=== PATIENT | female | born 1980 | race African-American/Black ===

== ENCOUNTER 2017-12-02 20:19 | Emergency (ER) | payer OTHER ==
--- NOTE | 2017-12-02 20:24 | PDOC ---
History of Present Illness - General Stated Complaint: VAGINAL BLEED Time Seen by Provider: 12/02/17 20:24 History Source: Patient Exam Limitations: No Limitations - History of Present Illness Initial Comments: 12/02/17 20:52 37 year old female A1 BIBA from urgent care to ED for vaginal bleeding x13 days, worsening today at 1430. She admits to clots, using 10 pads since 1430 today. She states she had an elective 11/19/17, had a TVUS showing an empty uterus 11/23/17, was seen by her OBGYN recently for abdominal cramping, was prescribed Ketorlac. She states she was seen by urgent care today today, was told her urine test was positive and was sent to ED. She currently complains of lightheadedness and suprapubic pain. She denies fever, chills, nausea, vomiting, diarrhea, chest pain, shortness of breath. Pt also compains of sore throat, was seen by her physician, strep test was negative. Pt recently traveled to [facility] for four days. Allergies - NKDA Past History - Past Medical History Allergies/Adverse Reactions: Allergies Allergy/AdvReac Type Severity Reaction Status Date / Time No Known Allergies Allergy Verified 12/02/17 20:27 Home Medications: Ambulatory Orders Zolpidem Tartrate [Ambien] 5 mg PO HS PRN 12/02/17 Review of Systems - Review of Systems Able to Perform ROS?: Yes Comments:: 12/02/17 20:39 General: denies fever, chills, night sweats, generalized weakness. HEENT: admits to sore throat. denies rhinorrhea, ear pain. Heart: admits to lightheadedness. denies chest pain, palpitations, syncope, lower extremity swelling, diaphoresis. Respiratory: denies shortness of breath, cough, sputum production, hemoptysis. Abdomen: admits to suprapubic pain. denies nausea, vomiting, diarrhea, constipation, blood in stool. : admits to vaginal bleeding. denies dysuria, increased urinary frequency, hematuria, urinary incontinence, flank pain. Back: denies back pain. Musculoskeletal: denies joint pain, muscle pain, joint swelling. Neurological: denies headache, dizziness, numbness, tingling, weakness. Skin: denies rash, laceration, abrasion. *Physical Exam - Physical Exam Comments: 12/02/17 20:40 Constitutional: Well-nourished, Well-developed, appearing stated age. HEENT: head is normocephalic, atraumatic. EOMI. PERRLA. no posterior pharyngeal erythema. no tonsillar swelling. no tonsillar exudates. moist oral mucousa. Neck: supple. Full ROM. Heart: regular rhythm. no murmurs, rubs or gallops. Lungs: clear to auscultation bilaterally. no crackles, rhonchi or wheezing. no stridor. Abdomen: soft, flat. tenderness to palpation of suprapubic area. normal bowel sounds. no rebound, guarding, masses. Pelvic: normal external genitalia. minimal pooling of blood in vaginal canal. mucus seen at cervical os. no CMT on bimanual examination. no adnexal tenderness on bimanual examination. Extremities: Peripheral pulses intact and equal. No lower extremity edema. Neurological: CN 2-12 grossly intact. Moves all four extremities. Psych: awake, alert, oriented x3. Follows commands. Answers questions appropriately. ED Treatment Course - LABORATORY CBC & Chemistry Diagram: 12/02/17 21:05 12/02/17 21:05 Medical Decision Making - Medical Decision Making 12/02/17 20:41 37 year old female A1 with no PMH BIBA from urgent care to ED for vaginal bleeding x13 days, worsening at 1430 today. Pt stated outpatient TVUS performed on 11/23/17 showed an empty uterus, with blood in the canal. Pt stated she had a positive urine test today. Initial Vital Signs Temp Pulse Resp BP Pulse Ox 99.8 F H 79 20 118/84 98 12/02/17 20:27 12/02/17 20:27 12/02/17 20:27 12/02/17 20:27 12/02/17 20:27 Febrile. No tachycardia. No tachypnea. No hypotension. No hypoxia on room air. Concern for ectopic /retained products of conception - Pending TVUS - Doxycycline and Cefoxitin ordered for suspected retained products of conception Concern for anemia - CBC Concern for coagulopathy - Pending coags Concerns for SIRS/Sepsis - Pending blood cultures, lactate 12/02/17 22:00 CBC WBC 6.5 K/mm3 (4.0-10.0) 12/02/17 21:05 RBC 4.07 M/mm3 (3.60-5.2) 12/02/17 21:05 Hgb 9.7 GM/dL (10.7-15.3) L 12/02/17 21:05 Hct 30.7 % (32.4-45.2) L 12/02/17 21:05 MCV 75.4 fl (80-96) L 12/02/17 21:05 MCH 23.7 pg (25.7-33.7) L 12/02/17 21:05 MCHC 31.4 g/dl (32.0-36.0) L 12/02/17 21:05 RDW 15.4 % (11.6-15.6) 12/02/17 21:05 Plt Count 359 K/MM3 (134-434) 12/02/17 21:05 MPV 8.8 fl (7.5-11.1) 12/02/17 21:05 Absolute Neuts (auto) 4.3 K/mm3 (1.5-8.0) 12/02/17 21:05 Neutrophils % 66.2 % (42.8-82.8) 12/02/17 21:05 Lymphocytes % 24.5 % (8-40) 12/02/17 21:05 Monocytes % 8.3 % (3.8-10.2) 12/02/17 21:05 Eosinophils % 0.6 % (0-4.5) 12/02/17 21:05 Basophils % 0.4 % (0-2.0) 12/02/17 21:05 Nucleated RBC % 0 % (0-0) 12/02/17 21:05 No leukocytosis. - Pt does not meet qualification for SIRS Mild anemia - Likely secondary to vaginal bleeding, no prior to compare No thrombocytopenia Urine Test Results Urine Color Ltyellow 12/02/17 20:49 Urine Appearance Slcloudy 12/02/17 20:49 Urine pH 8.0 (5.0-8.0) 12/02/17 20:49 Ur Specific [place] 1.010 (1.010-1.035) 12/02/17 20:49 Urine Protein 1+ (NEGATIVE) H 12/02/17 20:49 Urine Glucose (UA) Negative (NEGATIVE) 12/02/17 20:49 Urine Ketones Negative (NEGATIVE) 12/02/17 20:49 Urine Blood 3+ (NEGATIVE) H 12/02/17 20:49 Urine Nitrite Negative (NEGATIVE) 12/02/17 20:49 Urine Bilirubin Negative (<2.0 mg/dL) 12/02/17 20:49 Ur Leukocyte Esterase Negative (NEGATIVE) 12/02/17 20:49 Urine Mucus Rare 12/02/17 20:49 3+ blood - Likely contaminate from vaginal bleeding No evidence of urinary tract infection Urine test positive. - Pending serum quant 12/02/17 22:00 I signed this patient out to Dr. Arrington, who will assume care for the patient while she is in the Emergency Department. *DC/Admit/Observation/Transfer Diagnosis at time of Disposition: Suprapubic pain, Vaginal bleeding - Referrals Referrals: Carlos Barnett [Primary Care Provider] - - Patient Instructions - Post Discharge Activity
[2017-12-02 20:29] VITALS: BP 118/84; PULSE 79; TEMP 99.8; BMI 28.8
[2017-12-02 21:14] LABS: URINE APPEARANCE SLCLOUDY; URINE BILIRUBIN NEGATIVE (<2.0 mg/dL); URINE COLOR LTYELLOW; URINE GLUCOSE (UA) NEGATIVE (NEGATIVE); URINE KETONE NEGATIVE (NEGATIVE); URINE LEUK ESTERASE NEGATIVE (NEGATIVE); URINE NITRITE NEGATIVE (NEGATIVE); URINE PROTEIN 1+ (NEGATIVE); URINE UROBILINOGEN NEGATIVE mg/dL (0.2-1.0)
[2017-12-02 21:17] LABS: BASO % 0.4 % (0-2.0); EOS % 0.6 % (0-4.5); HEMATOCRIT 30.7 % (32.4-45.2); HEMOGLOBIN 9.7 GM/dL (10.7-15.3); LYMPH % 24.5 % (8-40); MCH 23.7 pg (25.7-33.7); MCHC 31.4 g/dl (32.0-36.0); MEAN CELL VOLUME 75.4 fl (80-96); MEAN PLT VOLUME 8.8 fl (7.5-11.1); MONO % 8.3 % (3.8-10.2); NEUT % 66.2 % (42.8-82.8); PLATELET COUNT 359 K/MM3 (134-434); RBC 4.07 M/mm3 (3.60-5.2); RDW 15.4 % (11.6-15.6); WHITE BLOOD COUNT 6.5 K/mm3 (4.0-10.0)
[2017-12-02] MEDS ORDERED: CEFOXITIN SODIUM 2 GM in DEXTROSE 5%-WATER - 100 ML IVPB ONE (21:18)
[2017-12-02] MEDS ORDERED: DOXYCYCLINE INJECTION 100 MG in DEXTROSE 5%-WATER - 100 ML IVPB ONE (21:18)
[2017-12-02 21:20] LABS: HCG,QUALITATIVE URINE Positive
--- NOTE | 2017-12-02 21:27 | PDOC ---
Attending Attestation - HPI HPI: 12/02/17 21:59 The patient is a 37 year old female A1 brought via EMS, with a significant past medical history of, who presents to the ED complaining of vaginal bleeding for the past 13 days. She notes that bleeding worsened today and started to see clots. She notes that she has used over 10 pads today. She had an elective n 11/19/17. She also notes that she had a TVUS on 11/23/17 which showed an empty uterus. She was recently prescribed Ketorlac after seeing her OBGYN for abdominal cramping. She saw her OBGYN today who performed a test that was positive. She was sent to the ED for evaluation. She notes that she is also experiencing suprapubic pain and lightheadedness. The patient denies chest pain, shortness of breath, headache, fever, chills, nausea, vomiting, diarrhea or constipation. Allergies: None Past surgical history: None reported Social History: No alcohol, tobacco or drug use reported <Henry Dowd - Last Filed: 12/02/17 21:59> - Resident Resident Name: Bea Lemus - ED Attending Attestation I have performed the following: I have examined & evaluated the patient, The case was reviewed & discussed with the resident, I agree w/resident's findings & plan, Exceptions are as noted - Physicial Exam PE: 12/02/17 23:12 Patient is awake and alert, well-appearing, well-nourished, in no distress Normocephalic and atraumatic PERRLA, EOMI, CTA RRR Abdomen soft, nontender, nondistended, bowel sounds present in all 4 quadrants, no hernias, no CVA tenderness bilaterally see pelvic exam by Dr. Lemus. - Medical Decision Making 12/02/17 23:15 37-year-old female status post elective medical presents with recurrent vaginal bleeding. Patient's hemodynamically stable with no evidence of CMT or endometrial tenderness. CBC is without evidence of leukocytosis. Repeat transvaginal showed shows small amount of fluid within the endometrial cavity. Septic or endometritis is highly unlikely at this time. Case discussed with Dr. Jean. Will discharge with outpatient follow-up. <Momo Haywood - Last Filed: 12/02/17 23:16>
[2017-12-02 21:31] LABS: URINE MUCUS RARE
[2017-12-02 21:58] LABS: ACTIVATED PTT 29.4 SECONDS (25.2-36.5); INR 1.02 (0.83-1.09)
[2017-12-02 22:07] LABS: ALBUMIN 3.7 g/dl (3.4-5.0); ALK PHOS 72 U/L (45-117); ANION GAP 8 MMOL/L (8-16); BILIRUBIN,TOTAL 0.2 mg/dL (0.2-1); BLOOD UREA NITROGEN 12 mg/dL (7-18); CALCIUM 8.8 mg/dL (8.5-10.1); CHLORIDE 110 mmol/L (98-107); CO2 22 mmol/L (21-32); CREATININE 0.5 mg/dL (0.55-1.3); GLUCOSE,RANDOM 84 mg/dL (74-106); POTASSIUM 3.7 mmol/L (3.5-5.1); SGOT/AST 14 U/L (15-37); SGPT/ALT 24 U/L (13-61); SODIUM 140 mmol/L (136-145)
[2017-12-02] MEDS ORDERED: SODIUM CHLORIDE 500 ML IV STA (22:09)
[2017-12-02] MEDS ORDERED: DOXYCYCLINE HYCLATE 100 MG VIAL ONE (22:48)
--- NOTE | 2017-12-02 23:59 | PDOC ---
*Physical Exam - Vital Signs Last Vital Signs Temp Pulse Resp BP Pulse Ox 99.8 F H 79 20 118/84 98 12/02/17 20:27 12/02/17 20:27 12/02/17 20:27 12/02/17 20:27 12/02/17 20:27 ED Treatment Course - LABORATORY CBC & Chemistry Diagram: 12/02/17 21:05 12/02/17 21:05 - ADDITIONAL ORDERS Additional order review: Laboratory Results 12/02/17 12/02/17 12/02/17 21:28 21:05 21:05 PT with INR INR PTT ([place] FS) Sodium Potassium Chloride Carbon Dioxide Anion Gap BUN Creatinine Creat Clearance w eGFR Random Glucose Lactic Acid 0.6 Calcium Total Bilirubin AST ALT Alkaline Phosphatase Total Protein Albumin Beta HCG, Quant 96.2 Urine Color Urine Appearance Urine pH Ur Specific [place] Urine Protein Urine Glucose (UA) Urine Ketones Urine Blood Urine Nitrite Urine Bilirubin Urine Urobilinogen Ur Leukocyte Esterase Urine WBC (Auto) Urine RBC (Auto) Urine Mucus Urine HCG, Qual Blood Type A POSITIVE Antibody Screen Negative 12/02/17 12/02/17 12/02/17 21:05 21:05 20:49 PT with INR 12.00 INR 1.02 PTT (Actin FS) 29.4 Sodium 140 Potassium 3.7 Chloride 110 H Carbon Dioxide 22 Anion Gap 8 BUN 12 Creatinine 0.5 L Creat Clearance w eGFR > 60 Random Glucose 84 Lactic Acid Calcium 8.8 Total Bilirubin 0.2 AST 14 L ALT 24 Alkaline Phosphatase 72 Total Protein 8.0 Albumin 3.7 Beta HCG, Quant Urine Color Ltyellow Urine Appearance Slcloudy Urine pH 8.0 Ur Specific [place] 1.010 Urine Protein 1+ H Urine Glucose (UA) Negative Urine Ketones Negative Urine Blood 3+ H Urine Nitrite Negative Urine Bilirubin Negative Urine Urobilinogen Negative Ur Leukocyte Esterase Negative Urine WBC (Auto) 1 Urine RBC (Auto) 324 Urine Mucus Rare Urine HCG, Qual Positive Blood Type Antibody Screen 12/02/17 21:05 RBC 4.07 MCV 75.4 L MCHC 31.4 L RDW 15.4 MPV 8.8 Neutrophils % 66.2 Lymphocytes % 24.5 Monocytes % 8.3 Eosinophils % 0.6 Basophils % 0.4 - Medications Given in the ED: ED Medications Discontinued Medications Generic Name Dose Route Start Last Admin Trade Name Freq PRN Reason Stop Dose Admin Cefoxitin Sodium 2 gm/ 100 mls @ 200 mls/hr 12/02/17 21:18 12/02/17 23:20 Dextrose IVPB 12/02/17 21:47 200 mls/hr ONCE ONE Administration Protocol Doxycycline Hyclate 100 mg/ 100 mls @ 100 mls/hr 12/02/17 21:18 12/02/17 23: 20 Dextrose IVPB 12/02/17 22:17 100 mls/hr ONCE ONE Administration Sodium Chloride 500 mls @ 500 mls/hr 12/02/17 22:09 12/02/17 23:34 Normal Saline - IV 12/02/17 23:08 500 mls/hr ASDIR STA Administration Medical Decision Making - Medical Decision Making 12/02/17 23:[address] Jean who works with Dr. Romero. Dr. Corley reviewed pts chart and ultrasound report and agrees patient can be safely sent home with follow up in the clinic. Pt given 100mg Doxy PO BID for 5 days. *DC/Admit/Observation/Transfer Diagnosis at time of Disposition: Suprapubic pain, Vaginal bleeding - Discharge Dispostion Disposition: HOME Condition at time of disposition: Stable Decision to Admit order: No - Prescriptions Prescriptions: Doxycycline Monohydrate [Monodox] 100 mg PO BID 5 Days #10 capsule - Referrals Referrals: Germaine Jean MD [Staff Physician] - Carlos Barnett [Primary Care Provider] - - Patient Instructions Printed Discharge Instructions: DI for Vaginal Bleeding Additional Instructions: Please return to the emergency department with any new or concerning symptoms including but not limited to: continued heavy bleeding, lightheadedness, fainting or severe abdominal pain. Please follow up with your [facility] physician within 48 hours. Please take Doxycycline 100 mg 2 times a day for the next 5 days. - Post Discharge Activity
== END 2017-12-03 00:32 | disposition home or self-care (01) ==
LOC: JER 20:19
PROC: 3E0337Z Introduction of Electrolytic and Water Balance Substance into Peripheral Vein, Percutaneous Approach (ICD-10-PCS; principal; 2017-12-02)
PROC: 3E03329 Introduction of Other Anti-infective into Peripheral Vein, Percutaneous Approach (ICD-10-PCS; 2017-12-02)
PROC: 3E03329 Introduction of Other Anti-infective into Peripheral Vein, Percutaneous Approach (ICD-10-PCS; 2017-12-02)
DX: O03.6 Delayed or excessive hemorrhage following complete or unspecified spontaneous abortion (principal); N93.8 Other specified abnormal uterine and vaginal bleeding
CPT/HCPCS: 36415; 76830-TC; 80053; 81003; 81015; 83605; 84702; 84703; 85025; 85610; 85730; 86850; 86900; 86901; 87040; 87086; 99283-25